=== PATIENT | female | born 1995 | race African-American/Black ===

== ENCOUNTER 2018-03-21 04:31 | Outpatient (CLI) | payer OTHER ==
[2018-03-21 05:09] LABS: APPEARANCE,URINE CLOUDY; BILIRUBIN,URINE NEGATIVE (NEGATIVE); COLOR,URINE YELLOW; GLUCOSE, URINE NEGATIVE (NEGATIVE); KETONES,URINE NEGATIVE (NEGATIVE); LEUKOCYTE ESTERASE,URINE TRACE (NEGATIVE); NITRITE,URINE NEGATIVE (NEGATIVE); PROTEIN,URINE NEGATIVE (NEGATIVE); URINE SPECIFIC GRAVITY 1.021
[2018-03-21 05:16] LABS: URINE AMPHETAMINES SCREEN NEGATIVE; URINE BARBITURATES SCREEN NEGATIVE; URINE BENZODIAZEPINES SCREEN NEGATIVE; URINE COCAINE SCREEN NEGATIVE; URINE MARIJUANA (THC) SCREEN NEGATIVE; URINE METHADONE SCREEN NEGATIVE; URINE PHENCYCLIDINE SCREEN NEGATIVE
--- NOTE | 2018-03-21 08:09 | RADIOLOGY REPORT (SQ) ---
EXAM DESCRIPTION: U/S OB LIMITED COMPLETED DATE/TIME: 03/21/2018 6:04 am REASON FOR STUDY: wellbeing, placental status to r/o abruption COMPARISON: None. TECHNIQUE: Limited transabdominal grayscale ultrasound for evaluation of specific requested obstetri rafa parameters. LIMITATIONS: None. FINDINGS: CERVICAL LENGTH: 3.1 cm. Closed. JUAN MIGUEL: Largest pocket 4.4 cm. FHR: 153 beats per minute. PRESENTATION: Cephalic. PLACENTA: Anterior. No abruption. ANATOMY: Not assessed OTHER: No other significant findings. IMPRESSION: LIMITED OBSTETRICAL ULTRASOUND WITH MEASURED PARAMETERS DELINEATED ABOVE. Trimester of : Second trimester - 13 weeks 1 day to 27 weeks 6 days. TECHNICAL DOCUMENTATION: JOB ID: [id number] [employer]- All Rights Reserved Reading location - IP/workstation name: [facility]-[email or web address]
== END 2018-03-21 07:33 | disposition home or self-care (01) ==
LOC: LC 04:31
PROVIDERS: ATTEND Student in an Organized Health Care Education/Training Program
PROC: 4A1HXCZ Monitoring of Products of Conception, Cardiac Rate, External Approach (ICD-10-PCS; principal; 2018-03-21)
DX: O47.02 False labor before 37 completed weeks of gestation, second trimester (principal); O9A.212 Injury, poisoning and certain other consequences of external causes complicating pregnancy, second trimester; O9A.312 Physical abuse complicating pregnancy, second trimester; Z3A.20 20 weeks gestation of pregnancy; Y07.01 Husband, perpetrator of maltreatment and neglect
CPT/HCPCS: 76815; 80307; 81001